=== PATIENT | female | born 1980 | race Caucasian/White ===

== ENCOUNTER 2016-07-31 00:07 | Emergency (ER) | payer OTHER ==
[~2016-07-31] VITALS: Ht 154.9 cm; Wt 51.8 kg
[2016-07-31 01:41] LABS: BASOPHIL COUNT 0.1 K/uL (0-0.1); EOSINOPHIL (%) 1.7 % (0-5); EOSINOPHIL COUNT 0.2 K/uL (0-0.3); HEMATOCRIT 40.5 % (36.0-46.0); IMMATURE GRANULOCYTE (%) 0.2 % (0.0-0.7); INSTRUMENT ABS NEUTROPHIL CT 5.8 K/uL; LYMPHOCYTE COUNT 3.3 K/uL (1.0-2.8); MCH 32.9 PG (29.0-34.0); MCHC 35.6 G/DL (30.0-36.0); MCV 92.5 FL (83-99); MEAN PLAT.VOLUME 11.3 uM^3 (9.5-12.4); MONOCYTE (%) 6.7 % (3-12); MONOCYTE COUNT 0.7 K/uL (0-0.8); NEUTROPHIL (%) 57.5 % (45-76); NEUTROPHIL COUNT 5.8 K/uL (1.8-6.4); PLATELET COUNT 211 K/uL (156-360); RBC DIS.WIDTH-CV 11.5 % (11.8-14.6); RBC DIS.WIDTH-SD 39.6 % (39-53); RED BLOOD COUNT 4.38 M/uL (3.80-5.20)
[2016-07-31 01:46] LABS: CHLORIDE 110 mEq/L (99-109); POTASSIUM 3.7 mEq/L (3.7-5.4); SODIUM 141 mEq/L (136-147)
[2016-07-31 01:47] LABS: GLUCOSE 87 mg/dL (70-99)
[2016-07-31 01:49] LABS: ANION GAP 10 MEQ/L (2-14)
[2016-07-31 01:51] LABS: GFR ESTIMATE (CALCULATED) > 59 mL/min/
[2016-07-31 01:52] LABS: UREA NITROGEN (BUN) 9 mg/dL (9-23)
[2016-07-31 01:58] LABS: QUANTITATIVE HCG < 4.0 MIU/ML
[2016-07-31 02:47] VITALS: BP 110/71
== END 2016-07-31 02:47 | disposition home or self-care (01) ==
LOC: EME 00:07
PROVIDERS: Emergency Medicine
DX: Z04.41 Encounter for examination and observation following alleged adult rape (principal); T74.21XA Adult sexual abuse, confirmed, initial encounter; F17.200 Nicotine dependence, unspecified, uncomplicated
CPT/HCPCS: 80048; 84702; 85025; 99281; 99285